=== PATIENT | female | born 1935 | race Caucasian/White ===

== ENCOUNTER 2022-05-04 07:28 | Day surgery (SDC) | payer OTHER ==
[2022-04-29 11:50] VITALS: BMI 27.4
[2022-05-04] MEDS ORDERED: POVIDONE-IODINE 5% OPHTHALMIC PREP 30 ML SOLUTION ONE (09:18)
[2022-05-04] MEDS ORDERED: TETRACAINE 0.5% OPHTH SOLN 2 ML BOTTLE ONE (09:20)
[2022-05-04] MEDS ORDERED: ceFAZolin SODIUM 1 GM VIAL ONE ×2 (09:20→10:22)
[2022-05-04] MEDS ORDERED: ERYTHROMYCIN 0.5% OPHTHALMIC OINTMENT 3.5 GM TUBE ONE (09:20)
[2022-05-04] MEDS ORDERED: EPINEPHrine/PF 1 MG/1 ML (1:1,000) AMPULE ONE (09:20)
[2022-05-04] MEDS ORDERED: LIDOCAINE HCL 1%, 10 MG/ML (20ML VIAL) ONE (09:21)
[2022-05-04] MEDS ORDERED: BUPIVACAINE HCL 50 ML ONE (09:21)
[2022-05-04] MEDS ORDERED: PROPOFOL 20 ML ONE (09:56)
[2022-05-04] MEDS ORDERED: MIDAZOLAM HCL 2 MG/2 ML SINGLE DOSE VIAL ONE (09:58)
[2022-05-04] MEDS ORDERED: ONDANSETRON 4 MG/2 ML VIAL ONE (10:22)
[2022-05-04] MEDS ORDERED: LIDOCAINE HCL/PF 2% SDV 5ML VIAL ONE (10:22)
[2022-05-04] MEDS ORDERED: DEXAMETHASONE SOD PHOSPHATE 4 MG/1 ML VIAL ONE (10:22)
[2022-05-04] MEDS ORDERED: KETOROLAC TROMETHAMINE 30 MG/1 ML VIAL ONE (10:22)
[2022-05-04] MEDS ORDERED: PROPOFOL 100 ML ONE (10:26)
[2022-05-04] MEDS ORDERED: ACETAMINOPHEN 325 MG TABLET (FP) PO PRN (12:02)
[2022-05-04] MEDS ORDERED: ONDANSETRON 4 MG/2 ML VIAL IVPUSH PRN (12:02)
[2022-05-04] MEDS ORDERED: PROMETHAZINE HCL 25 MG/1 ML VIAL IVPUSH PRN (12:02)
[2022-05-04 14:20] VITALS: TEMP 97.5
[2022-05-04 15:58] VITALS: BP 149/79; PULSE 74; RESP 16
== END 2022-05-04 14:00 | disposition home or self-care (01) ==
LOC: FASU 07:28
PROVIDERS: ATTEND Ophthalmology
PROC: 08SR0ZZ Reposition Left Lower Eyelid, Open Approach (ICD-10-PCS; 2022-05-04)
PROC: 0KX10ZZ Transfer Facial Muscle, Open Approach (ICD-10-PCS; 2022-05-04)
PROC: 08SP0ZZ Reposition Left Upper Eyelid, Open Approach (ICD-10-PCS; principal; 2022-05-04 10:29)
DX: H02.89 Other specified disorders of eyelid (principal); Z85.828 Personal history of other malignant neoplasm of skin
CPT/HCPCS: 94760